=== PATIENT | male | born 1985 | race Caucasian/White ===

== ENCOUNTER 2019-04-21 08:46 | Day surgery (SDC) | payer OTHER ==
[2019-04-20 15:58] VITALS: BMI 23.7
[2019-04-21] MEDS ORDERED: Ketorolac Tromethamine 30 MG/ML VIAL ONE (09:32)
[2019-04-21] MEDS ORDERED: Acetaminophen 500 MG TAB ONE (09:33)
[2019-04-21] MEDS ORDERED: Midazolam HCl 2 mg/2 ml Vial ONE ×2 (10:14→11:25)
[2019-04-21 10:53] LABS: Anion Gap 13 mmol/L (10-20); BUN (Urea Nitrogen) 19 mg/dL (8.9-20.6); Calc. Creatinine Clearance 104 mL/min (70-130); Calcium 9.5 mg/dL (7.8-10.44); Carbon Dioxide 29 mmol/L (22-29); Chloride 100 mmol/L (98-107); Estimated GFR-MDRD 70; Glucose 86 mg/dL (70-105); Potassium 3.6 mmol/L (3.5-5.1); Sodium 138 mmol/L (136-145)
[2019-04-21 11:03] LABS: #Basophils 0.1 thou/uL (0.0-0.2); #Eosinphils 0.3 thou/uL (0.0-0.7); #Lymphocytes 1.8 thou/uL (1.20-3.40); #Monocytes 0.8 thou/uL (0.11-0.59); #Neutrophils 6.1 thou/uL (1.40-6.50); %Basophils 0.9 % (0.0-1.0); %Eosinophils 2.9 % (0.0-10.0); %Lymphocytes 20.1 % (21.0-51.0); %Monocytes 8.5 % (0.0-10.0); %Neutrophils 67.6 % (42.0-75.0); Hemoglobin 17.4 g/dL (14.0-18.0); Mean Corpuscular HGB CONC 33.6 g/dL (32.0-36.0); Mean Corpuscular Hemoglobin 30.5 pg (27.0-31.0); Mean Corpuscular Volume 90.9 fL (78.0-98.0); Mean Platelet Volume 7.8 fL (7.4-10.4); Platelet Count 211 thou/uL (130-400); RBC Distribution Width 11.9 % (11.5-14.5); Red Blood Cell (RBC) Count 5.71 mill/uL (4.70-6.10); White Blood Cell (WBC) Count 9.1 thou/uL (4.8-10.8)
[2019-04-21] MEDS ORDERED: Fentanyl 100 MCG/2 ML VIAL ONE ×3 (11:25→14:16)
[2019-04-21] MEDS ORDERED: Bupivacaine PF 0.5% 30 ML VIAL ONE (11:27)
[2019-04-21] MEDS ORDERED: Lidocaine 1% w/Epinephrine 1:100K 20 ML VIAL ONE (11:27)
[2019-04-21] MEDS ORDERED: Rocuronium Bromide 10 MG/ML (10ML VIAL) ONE (13:27)
[2019-04-21] MEDS ORDERED: Glycopyrrolate 0.2 MG/ML 5 ML SYRINGE ONE (13:27)
[2019-04-21] MEDS ORDERED: Lidocaine 1% PF 5 ML VIAL ONE (13:27)
[2019-04-21] MEDS ORDERED: PROPOFOL 200 MG/20 ML VIAL ONE (13:27)
[2019-04-21] MEDS ORDERED: Ondansetron PF 4 MG/2 ML Vial ONE (13:27)
[2019-04-21] MEDS ORDERED: Dexamethasone 20 MG/5 ML VIAL ONE (13:27)
--- NOTE | 2019-04-22 09:02 | OP ---
DATE OF PROCEDURE: 04/21/2019 PREOPERATIVE DIAGNOSIS: Right inguinal hernia. POSTOPERATIVE DIAGNOSIS: Right inguinal hernia, indirect. PROCEDURE PERFORMED: Robotic-assisted right inguinal hernia repair using large 3DMax mesh patch. ANESTHESIA: General endotracheal. INDICATIONS: Patient is a 34-year-old white male. He presents with an easily visible and palpable right inguinal hernia, is taken to the operating room at this time for robotic repair. DESCRIPTION OF OPERATION: Informed consent was obtained. Patient was taken to the operating room, where general endotracheal anesthesia obtained, patient in supine position. Day catheter was placed, abdomen was prepped with ChloraPrep and draped in a sterile fashion. Local anesthetic was infiltrated using a mixture of 1% lidocaine with epinephrine and 0.25% Marcaine. A transverse supraumbilical 11 mm incision was created through which a Veress needle was passed in the peritoneal cavity and pneumoperitoneum was established using carbon dioxide up to a pressure of 15 mmHg. An 11 mm trocar port was passed through the same incision into the abdominal cavity. The robotic camera was passed through this port. Under direct vision, 2 additional 8 mm robotic ports were placed, one on either side of midline at the supraumbilical level. The robot was docked to 3 ports and to the camera and operation was continued from the robotic console. The right inguinal hernia was easily identified and found to be an indirect hernia. Using the tirso, a transverse incision was created several centimeters superior to the hernia defect. Dissection was then carried in a preperitoneal space inferiorly. On the medial aspect, dissection was carried down to the pubic tubercle and Cordell's ligament. On the lateral aspect, the iliopubic tract was dissected to give ample space for the mesh patch. In the central portion, the sac was carefully dissected off the underlying cord structures. It was widely mobilized off the cord structures and the vas deferens was dissected off as it deviated medially. There was no substantial cord lipoma that was noted. A large 3DMax mesh patch was obtained and placed within the preperitoneal space. It was secured in place with 2 interrupted sutures of 3-0 Vicryl, one of which was placed through the pubic tubercle and one to the anterior abdominal wall just lateral to the epigastric vessels. It rested nicely within the preperitoneal space. The peritoneum was then closed with a running suture of 3-0 Stratafix. The fascial defect at the supraumbilical incision was closed with 0 Vicryl suture using a GraNee needle. All ports removed under direct vision. Pneumoperitoneum was carefully evacuated. Additional local anesthetic was infiltrated at each port site. Skin edges approximated with 4-0 Monocryl subcuticular suture and Dermabond was placed externally. There were no complications. Patient tolerated the procedure well and was taken to the recovery room in stable condition. Job ID: [id number]
== END 2019-04-21 15:40 | disposition home or self-care (01) ==
LOC: SDC 08:46
PROVIDERS: ATTEND Specialist
PROC: 0YU54JZ Supplement Right Inguinal Region with Synthetic Substitute, Percutaneous Endoscopic Approach (ICD-10-PCS; principal; 2019-04-21)
DX: K40.90 Unilateral inguinal hernia, without obstruction or gangrene, not specified as recurrent (principal)
CPT/HCPCS: 80048; 85025; C1781; J0690; J1100; J1885; J2001; J2250; J2405; J2704; J3010; S0020

== ENCOUNTER 2021-02-05 18:00 | Emergency (ER) | payer OTHER | END 2021-02-05 19:13 | disposition home or self-care (01) | LOC: ERS 18:00 | DX: G25.89 Other specified extrapyramidal and movement disorders (principal) | CPT/HCPCS: 93005 ==

== ENCOUNTER 2021-02-15 13:07 | Outpatient (CLI) | payer OTHER | END 2021-02-15 13:08 | disposition home or self-care (01) | LOC: SCSMRI 13:07 | PROVIDERS: ATTEND Psychiatry & Neurology Neurology | DX: R55 Syncope and collapse (principal); G93.0 Cerebral cysts; I67.82 Cerebral ischemia | CPT/HCPCS: 70553 ==